=== PATIENT | male | born 1995 ===

== ENCOUNTER 2019-03-29 09:03 | Outpatient (CLI) | payer OTHER ==
--- NOTE | 2019-03-29 11:23 | CT ---
ABDOMEN AND PELVIC CT SCAN WITHOUT IV CONTRAST: Date: 03/29/2019 HISTORY: Left lower quadrant pain, left testicular pain, with concern for hernia. FINDINGS: The lung bases are clear. The liver, gallbladder, pancreas, spleen, and adrenal glands are unremarkab le as evaluated without IV contrast. There appear to be two very tiny nonobstructing right renal calc lio, but no evidence for acute obstruction. No CT evidence for acute appendicitis. No evidence for large or small bowel obstruction. No abscess, adenopathy, or abnormal fluid collection. Minimal nons pecific skin and subcutaneous thickening of the anterior abdominal wall below the level of the umbili cus, nonspecific. No evidence for inguinal or umbilical hernia. IMPRESSION: 1. Two very tiny nonobstructing right renal calculi, but no evidence for acute obstruction. 2. Normal appearing appendix. 3. Minimal nonspecific skin and subcutaneous fat stranding of the anterior abdominal wall below the level of the umbilicus. 4. No evidence for inguinal or umbilical hernia. POS: RANJITH
== END 2019-03-29 09:04 | disposition home or self-care (01) ==
LOC: BICCT 09:03
PROVIDERS: ATTEND Family Medicine
DX: N50.812 Left testicular pain (principal); R10.32 Left lower quadrant pain; N20.0 Calculus of kidney
CPT/HCPCS: 74176